=== PATIENT | female | born 1970 | race Caucasian/White ===

== ENCOUNTER 2021-12-18 17:15 | Emergency (ER) | payer OTHER, SELFPAY ==
--- NOTE | ~2021-12-18 | XR_ITS ---
EXAMINATION: XR finger 3rd LT min 2V INDICATION: Finger pain, metallic foreign body TECHNIQUE: Three views of the left hand are obtained COMPARISON: None available FINDINGS: There is a 5 mm linear radiopaque foreign body in the soft tissues lateral to the third dis lois phalanx. There is surrounding soft tissue swelling. 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 No fracture is identified. IMPRESSION: 1. 5 mm linear radiopaque foreign body in the soft tissues lateral to the third distal phalanx with s urrounding soft tissue swelling. Reviewed, dictated and finalized at location F. IMPRESSION: 1. 5 mm linear radiopaque foreign body in the soft tissues lateral to the third distal phalanx with surrounding soft tissue swelling.
[2021-12-18 17:26] VITALS: BP 152/81; PULSE 57; RESP 16; TEMP 36.5; O2SAT 98
[2021-12-18 20:16] VITALS: BP 154/97; PULSE 70; RESP 14; O2SAT 99
--- NOTE | 2021-12-18 20:31 | ED.SKABFB ---
HPI - Skin/Abscess/Foreign Bdy General Chief complaint: Skin/Abscess/Foreign Body <LISSETH Perez Last Filed: 12/18/21 22:13> Stated complaint: metal in finger <LISSETH Perez Last Filed: 12/18/21 22:13> Time Seen by Provider: 12/18/21 20:17 <LISSETH Perez Last Filed: 12/18/21 22:13> Source: patient <LISSETH Perez Last Filed: 12/18/21 22:13> Mode of arrival: ambulatory <LISSETH Perez Last Filed: 12/18/21 22:13> Limitations: no limitations <LISSETH Perez Last Filed: 12/18/21 22:13> History of Present Illness HPI narrative: This is a 51 year old female that presents to the ER for foreign body in the left third finger. This has been ongoing for a little over two weeks. Reports she was picking up a scooter and felt a little piece of metal go into the finger. She was unable to remove it. She has had redness and swelling of the area. Reports she had some drainage from the area. She is up-to-date on tetanus. Denies fever, decreased range of motion or numbness. <Sophia Garzon PA-C - Last Filed: 12/18/21 22:13> Related Data Allergies/Adverse reactions: Allergies Allergy/AdvReac Type Severity Reaction Status Date / Time No Known Allergies Allergy Verified 12/18/21 20:18 <Sophia Garzon PA-C - Last Filed: 12/18/21 22:13> Review of Systems Review of Systems: CONSTITUTIONAL: Denies fever SKIN: Reports foreign body <LISSETH Perez Last Filed: 12/18/21 22:13> All systems reviewed & are unremarkable except as noted in HPI and below <LISSETH Perez Last Filed: 12/18/21 22:13> [facility] Past Medical History Medical History: Medical History (Updated 12/19/21 @ 00:00 by Background Daemon) No active medical problems <LISSETH Perez Last Filed: 12/18/21 22:13> Family History Family History: Family History (Updated 04/22/14 @ 07:13 by DOCTOR UNKNOWN) Father Hypertension Family history of alcoholism Mother Asthma Family history of primary malignant neoplasm of liver Grandparent Cerebrovascular accident <LISSETH Perez Last Filed: 12/18/21 22:13> Social History Social History: Social History Alcohol intake: current <LISSETH Perez Last Filed: 12/18/21 22:13> Exam Narrative: GENERAL: Well-appearing, well-nourished, and in no acute distress. HEAD: Normocephalic, atraumatic. EYES: EOMI. EXTREMITIES: Normal range of motion. Mild edema about the left third finger distal phalanx with mild overlying redness. SKIN: Warm, dry, no rash. NEURO: No focal deficits. Alert and oriented x3. PSYCH: Normal mood and affect <LISSETH Perez Last Filed: 12/18/21 22:13> Course Vital Signs Vital signs: Vital Signs Temperature 97.7 F 12/18/21 17:26 Pulse Rate 57 L 12/18/21 17:26 Respiratory Rate 16 12/18/21 17:26 Blood Pressure 152/81 H 12/18/21 17:26 Pulse Oximetry 98 12/18/21 17:26 Temperature 97.7 F 12/18/21 17:26 Pulse Rate 70 12/18/21 20:16 Respiratory Rate 14 12/18/21 20:16 Blood Pressure 154/97 H 12/18/21 20:16 Pulse Oximetry 99 12/18/21 20:16 <LISSETH Perez Last Filed: 12/18/21 22:13> Procedures Abscess I/D hand: Date of Incision: 12/18/21 <LISSETH Perez Last Filed: 12/18/21 22:13> Time of Incision: 21:53 <LISSETH Perez Last Filed: 12/18/21 22:13> Side (if applicable): left <LISSETH Perez Last Filed: 12/18/21 22:13> Local Anesthetic: lidocaine 1% <Sophia Garzon PA-C - Last Filed: 12/18/21 22:13> Amount of anesthesia used (mL): 4 <Sophia Garzon PA-C - Last Filed: 12/18/21 22:13> Technique: needle aspiration <Sophia Garzon PA-C - Last Filed: 12/18/21 22:13> Packing used?: none <Sophia Garzon PA-C - Last Filed: 12/18/21 22:13> I&D Results:
--- NOTE | 2021-12-18 21:50 | PC.NURSE ---
pt. states she had to leave due to father having a heart attack. pt. advised to follow up with PCP for an abx.
== END 2021-12-18 21:55 | disposition left against medical advice (07) ==
PROVIDERS: Emergency Provider Emergency Medicine; PCP Emergency Medicine
DX: L02.512 Cutaneous abscess of left hand (principal); S60.453A Superficial foreign body of left middle finger, initial encounter; W45.8XXA Other foreign body or object entering through skin, initial encounter
CPT/HCPCS: 10160; 73140; 87070; 87205; 99283

== ENCOUNTER 2023-08-21 14:04 | Emergency (ER) | payer OTHER, SELFPAY ==
--- NOTE | ~2023-08-21 | XR_ITS ---
XR ankle RT min 3V 08/21/2023 14:33 INDICATION: Right ankle pain PROCEDURE: 4 views right ankle COMPARISON: No prior studies for comparison. FINDINGS: Fracture, dislocation or subluxation is not identified. There is a degenerative calcaneal e nthesophyte. The soft tissues appear within normal limits. No foreign bodies are identified. IMPRESSION: 1: NO ACUTE BONE OR JOINT ABNORMALITY IDENTIFIED. Reviewed, dictated and finalized at location B. LPHURING OPERATOR
[2023-08-21 14:23] VITALS: BP 148/92; PULSE 76; RESP 16; TEMP 36.6; O2SAT 98
--- NOTE | 2023-08-21 15:03 | ED.LOWEXIN ---
HPI - Extremity Injury (Lower) General Chief Complaint: Extremity Injury, Lower Stated Complaint: Fall Time Seen by Provider: 08/21/23 15:04 Source: patient and RN notes reviewed Mode of arrival: ambulatory Limitations: no limitations History of Present Illness HPI Narrative: 53-year-old female presents concern for right ankle pain. Reports she tripped and rolled her ankle yesterday. Reports she has had right ankle pain and swelling since then. Reports she is using crutches that she had a home. She denies decreased strength, sensation, range of motion. MD complaint: ankle injury Related Data Home Medications Medication Instructions Recorded Confirmed No Home Medications 08/21/23 08/21/23 Allergies Allergy/AdvReac Type Severity Reaction Status Date / Time No Known Allergies Allergy Verified 08/21/23 14:36 Review of Systems Review of Systems: CONSTITUTIONAL: Denies malaise, chills, sweats, or fever. SKIN: Denies rash or itching, open skin, laceration, abrasion, redness, warmth MUSCULOSKELETAL: Reports right ankle pain and swelling NEUROLOGIC: Denies numbness, weakness All systems reviewed & are unremarkable except as noted in HPI and below PMFSH Past Medical History Medical History (Updated 08/21/23 @ 15:10 by Brittany Brower NP) No active medical problems Family History Family History (Updated 04/22/14 @ 07:13 by DOCTOR UNKNOWN) Father Hypertension Family history of alcoholism Mother Asthma Family history of primary malignant neoplasm of liver Grandparent Cerebrovascular accident Social History Social History Alcohol intake: current Comments At time of signature, agree with nursing past medical, surgical, social and family history. There is no relevant family history pertinent to the presenting complaint Exam Narrative: GENERAL: Well-appearing, well-nourished, and in no acute distress. HEAD: Normocephalic, atraumatic. EYES: PERRLA, conjunctivae clear NECK: Supple. CHEST: Speaks in full sentences. No respiratory distress. HEART: Regular rate and rhythm. Normal and equal peripheral pulses. EXTREMITIES: Right ankle, foot, digits have grossly normal strength and sensation, grossly normal range of motion. Mild lateral ankle edema, mild ecchymosis. Normal sensation with sensitivity to light touch and pain. No point tenderness. No open wounds, no skin tenting, no devitalized tissue or atrophy, no trophic changes, no obvious deformity, alignment normal, nearby joints and structures intact. Distal pulses palpable and equal bilaterally, skin warm, dry, pink. Capillary refill less than 3 seconds. SKIN: Warm, dry, no rash. NEURO: Alert and oriented x3. PSYCH: Normal mood and affect Course Course Emergency Course: Patient is aware of diagnosis, understands and agrees to treatment plan. Anticipatory guidance given. Patient agrees to follow-up as directed and is aware of reasons to seek care at the emergency department. Portions of this record may have been created with voice recognition software Level of Care: Express Care Visit Vital Signs Vital signs: Vital Signs Temperature 97.8 F 08/21/23 14:23 Pulse Rate 76 08/21/23 14:23 Respiratory Rate 16 08/21/23 14:23 Blood Pressure 148/92 H 08/21/23 14:23 Pulse Oximetry 98 08/21/23 14:23 Oxygen Delivery Room Air 08/21/23 14:23 Temperature 97.8 F 08/21/23 14:23 Pulse Rate 76 08/21/23 14:23 Respiratory Rate 16 08/21/23 14:23 Blood Pressure 148/92 H 08/21/23 14:23 Pulse Oximetry 98 08/21/23 14:23 Oxygen Delivery Room Air 08/21/23 14:23 Reviewed. MDM - Extremity Injury (Lower) MDM Narrative Medical decision making narrative: Patients injury and pain is consistent with musculoskeletal etiology. No signs of neurological or vascular compromise on exam. Compartments and tissues are soft without signs of compartment syndrome. Pain is felt appropriate for further evaluation on an outpat
== END 2023-08-21 15:15 | disposition home or self-care (01) ==
PROVIDERS: Emergency Provider Nurse Practitioner; PCP Emergency Medicine
DX: S93.401A Sprain of unspecified ligament of right ankle, initial encounter (principal); S96.911A Strain of unspecified muscle and tendon at ankle and foot level, right foot, initial encounter; X50.9XXA Other and unspecified overexertion or strenuous movements or postures, initial encounter
CPT/HCPCS: 73610; 99213; G0463